=== PATIENT | female | born 1970 | race Caucasian/White ===

== ENCOUNTER 2017-09-30 07:35 | Emergency (ER) | payer OTHER ==
[2017-09-30] MEDS ORDERED: AMOX/K CLAV 875 MG TAB ONE (08:12)
--- NOTE | 2017-09-30 08:12 | ER ---
Nurse's Notes [facility] Name: Geronimo Cassidy Age: 47 yrs Sex: Female : 1970 Arrival Date: 09/30/2017 Time: 07:37 Bed 20 Private MD: None, None Diagnosis: Streptococcal pharyngitis Presentation: 09/30 07:43 Presenting complaint: Patient states: sore throat for 2 days, girlfriend had strep em several weeks ago, reports fever, body aches yesterday. Transition of care: patient was not received from another setting of care. Onset of symptoms was September 28, 2017. Risk Assessment: Do you want to hurt yourself or someone else? Patient reports no desire to harm self or others. Initial Sepsis Screen: Does the patient meet any 2 criteria? No. Patient's initial sepsis screen is negative. Does the patient have a suspected source of infection? No. Patient's initial sepsis screen is negative. Care prior to arrival: None. 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 - Social history:: Smoking status: Patient uses tobacco products, smokes two packs cigarettes per day. Screenin:46 Abuse screen: Denies threats or abuse. Nutritional screening: No deficits noted. em Tuberculosis screening: No symptoms or risk factors identified. Fall Risk None identified. Assessment: 07:47 General: Appears in no apparent distress. uncomfortable, Behavior is calm, cooperative. em Pain: Complains of pain in throat Pain currently is 8 out of 10 on a pain scale. Neuro: Level of Consciousness is awake, alert, obeys commands, Oriented to person, place, time, situation. Cardiovascular: Capillary refill < 3 seconds Patient's skin is warm and dry. Respiratory: Airway is patent Respiratory effort is even, unlabored, Respiratory pattern is regular, symmetrical, Breath sounds are clear bilaterally. GI: Abdomen is flat. : No signs and/or symptoms were reported regarding the genitourinary system. EENT: Throat is clear is pink. Derm: Skin is intact. Musculoskeletal: Range of motion: intact in all extremities. 08:00 Reassessment: Patient appears in no apparent distress at this time. I agree with above iw assessment by Jeff Roberto LVN. Vital Signs: 07:44 BP 143 / 78; Pulse 80; Resp 18; Temp 98.9(O); Pulse Ox 97% on R/A; Weight 70.31 kg; em Height 5 ft. 4 in. (162.56 cm); Pain 8/10; 08:21 BP 130 / 87; Pulse 77; Resp 16; Pulse Ox 99% on R/A; em 07:44 Body Mass Index 26.61 (70.31 kg, 162.56 cm) em ED Course: 07:37 Patient arrived in ED. mr 07:37 None, None is Private Physician. mr 07:37 Sandy Payton FNP-C is [facility]. kb 07:37 Chandler Samuel MD is Attending Physician. kb 07:43 Jeff Roberto LVN is Primary Nurse. em 07:49 Arm band placed on. em 07:49 Patient has correct armband on for positive identification. Bed in low position. Call em light in reach. 07:49 No provider procedures requiring assistance completed. Patient did not have IV access em during this emergency room visit. 07:54 Triage completed. iw Administered Medications: 08:13 Drug: Augmentin 875 mg Route: PO; 08:23 Follow up: Response: No adverse reaction em Outcome: 08:11 Discharge ordered by . kb 08:22 Discharged to home ambulatory. em 08:22 Condition: good 08:22 Discharge instructions given to patient, Instructed on discharge instructions, follow up and referral plans. medication usage, Demonstrated understanding of instructions, follow-up care, medications, Prescriptions given X 1. 08:24 Patient left the ED. em Signatures: Sandy Payton FNP-C FNP-Ckb Hammond, Christina, RN RN Joie Mendes mr Jeff Roberto LVN LVN em Yue Machado RN RN
--- NOTE | 2017-09-30 08:12 | EDPHYS ---
Physician Documentation [facility] Name: Geronimo Cassidy Age: 47 yrs Sex: Female : 1970 Arrival Date: 09/30/2017 Time: 07:37 Bed 20 Private MD: None, None ED Physician Chandler Samuel HPI: 09/30 08:09 This 47 yrs old Female presents to ER via Ambulatory with complaints of Sore kb Throat. 08:09 The patient presents with sore throat. The patient describes throat pain as constant. kb Onset: The symptoms/episode began/occurred 2 day(s) ago. Severity of symptoms: At their worst the symptoms were moderate, in the emergency department the symptoms are unchanged. Modifying factors: The symptoms are alleviated by nothing, the symptoms are aggravated by swallowing, Patient's oral intake status: good Denies contact with similarly ill indivduals. Associated signs and symptoms: Pertinent positives: fever, Sore throat. The patient has not experienced similar symptoms in the past. The patient has not recently seen a physician. Pt states she started having a sore throat 2 days ago, yesterday developed subjective fever and body aches. . 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 - Social history:: Smoking status: Patient uses tobacco products, smokes two packs cigarettes per day. ROS: 08:08 Cardiovascular: Negative for chest pain, palpitations, and edema, Respiratory: Negative kb for shortness of breath, cough, wheezing, and pleuritic chest pain, Abdomen/GI: Negative for abdominal pain, nausea, vomiting, diarrhea, and constipation, MS/Extremity: Negative for injury and deformity, Skin: Negative for injury, rash, and discoloration, Neuro: Negative for headache, weakness, numbness, tingling, and seizure. 08:08 Constitutional: Positive for body aches, fever, malaise, Negative for chills, fatigue, poor PO intake, weight loss. 08:08 ENT: Positive for sore throat. Exam: 08:08 Constitutional: This is a well developed, well nourished patient who is awake, alert, kb and in no acute distress. Head/Face: Normocephalic, atraumatic. Neck: Trachea midline, no thyromegaly or masses palpated, and no cervical lymphadenopathy. Supple, full range of motion without nuchal rigidity, or vertebral point tenderness. No Meningismus. Chest/axilla: Normal chest wall appearance and motion. Nontender with no deformity. No lesions are appreciated. Cardiovascular: Regular rate and rhythm with a normal S1 and S2. No gallops, murmurs, or rubs. Normal PMI, no JVD. No pulse deficits. Respiratory: Lungs have equal breath sounds bilaterally, clear to auscultation and percussion. No rales, rhonchi or wheezes noted. No increased work of breathing, no retractions or nasal flaring. Abdomen/GI: Soft, non-tender, with normal bowel sounds. No distension or tympany. No guarding or rebound. No evidence of tenderness throughout. Back: No spinal tenderness. No costovertebral tenderness. Full range of motion. Skin: Warm, dry with normal turgor. Normal color with no rashes, no lesions, and no evidence of cellulitis. MS/ Extremity: Pulses equal, no cyanosis. Neurovascular intact. Full, normal range of motion. Neuro: Awake and alert, GCS 15, oriented to person, place, time, and situation. Cranial nerves II-XII grossly intact. Motor strength 5/5 in all extremities. Sensory grossly intact. Cerebellar exam normal. Normal gait. 08:08 ENT: Posterior pharynx: Airway: normal, no evidence of obstruction, Tonsils: bilaterally enlarged, with erythema, Uvula: normal, midline, swelling, that is moderate, erythema, that is moderate, exudate, is not appreciated. Vital Signs: 07:44 BP 143 / 78; Pulse 80; Resp 18; Temp 98.9(O); Pulse Ox 97% on R/A; Weight 70.31 kg; em Height 5 ft. 4 in. (162.56 cm); Pain 8/10; 08:21 BP 130 / 87; Pulse 77; Resp 16; Pulse Ox 99% on R/A; em 07:44 Body Mass Index 26.61 (70.31 kg, 162.56 cm) em MDM: 07:43 Patient medically screened. kb 08:08 Data reviewed: vital signs, nurses notes. Data interpreted: Pulse oximetry: on room air kb is 97 %. Interpretation: normal. Counseling: I had a detailed discussion with the patient and/or guardian regarding: the historical points, exam findings, and any diagnostic results supporting the discharge/admit diagnosis, lab results, the need for outpatient follow up, a family practitioner, to return to the emergency department if symptoms worsen or persist or if there are any questions or concerns that arise at home. 09/30 07:43 Order name: Strep kb 09/30 07:43 Order name: Group A Streptococcus Rapid Sc; Complete Time: 08:07 EDMS Administered Medications: 08:13 Drug: Augmentin 875 mg Route: PO; 08:23 Follow up: Response: No adverse reaction em Disposition: 13:41 Co-signature as Attending Physician, Chandler Samuel MD. rn Disposition: 09/30/17 08:11 Discharged to Home. Impression: Streptococcal pharyngitis. - Condition is Stable. - Discharge Instructions: Strep Throat, [id number]. - Prescriptions for Augmentin 875- 125 mg Oral Tablet - take 1 tablet by ORAL route every 12 hours for 7 days; 14 tablet. - Medication Reconciliation Form, Thank You Letter, Antibiotic Education, Prescription Opioid Use, Work release form form. - Follow up: Emergency Department; When: As needed; Reason: Worsening of condition. Follow up: Private Physician; When: 2 - 3 days; Reason: Recheck today's complaints, Continuance of care, Re-evaluation by your physician. Signatures: Dispatcher [employer] Sandy Carrion, MANAGER PULMONARY-C MANAGER PULMONARY-Jenny Davis, RN RN Jeff Roberto, CODING DIRECTOR CODING DIRECTOR Chandler Samuel MD MD patternmaker sample: (The following items were deleted from the chart) 08:24 08:11 09/30/2017 08:11 Discharged to Home. Impression: Streptococcal pharyngitis. em Condition is Stable. Forms are Medication Reconciliation Form, Thank You Letter, Antibiotic Education, Prescription Opioid Use. Follow up: Emergency Department; When: As needed; Reason: Worsening of condition. Follow up: Private Physician; When: 2 - 3 days; Reason: Recheck today's complaints, Continuance of care, Re-evaluation by your physician. kb
== END 2017-09-30 08:24 | disposition home or self-care (01) ==
LOC: ER 07:35
DX: J02.0 Streptococcal pharyngitis (principal); F17.210 Nicotine dependence, cigarettes, uncomplicated
CPT/HCPCS: 87081; 99283

== ENCOUNTER 2019-05-16 13:27 | Emergency (ER) | payer OTHER, SELFPAY ==
--- OUTSIDE RECORDS SUMMARY | 2019-05-16 13:28 | XMS REPORT ---
:1970 [facility] Address [address] [place] [place] [address] Care Team Providers Name Role Phone Unavailable Unavailable Unavailable Problems This patient has no known problems. Allergies, Adverse Reactions, Alerts This patient has no known allergies or adverse reactions. Medications This patient has no known medications.
[2019-05-16] MEDS ORDERED: ONDANSETRON 4 MG/2 ML VIAL ONE (14:23)
[2019-05-16] MEDS ORDERED: NA CHLORIDE 0.9% 1,000 ML ONE (14:23)
[2019-05-16] MEDS ORDERED: DIAZEPAM 5 MG TABLET ONE (14:24)
[2019-05-16 14:37] LABS: Absolute Lymphocytes (CBC) 2.5 K/uL (0.7-4.9); Basophils % 0.7 % (0-1.3); Hematocrit 45.6 % (36.0-45.0); Lymphocytes % 33.5 % (15.3-44.8); MPV 10.5 fL (7.6-11.3); Protime INR 0.97; RBC Red Blood Cell Count 4.94 M/uL (3.86-4.86)
--- NOTE | 2019-05-16 14:52 | RAD REPORT ---
EXAM DESCRIPTION: RAD - Chest Single View - 05/16/2019 2:43 pm CLINICAL HISTORY: Dizziness Chest pain. COMPARISON: CHEST SINGLE VIEW dated 09/01/2008; CHEST PA AND LAT 2 VIEW dated 07/02/2000 FINDINGS: Portable technique limits examination quality. The lungs are grossly clear. The heart is normal in size. No displaced fractures. IMPRESSION: No acute intrathoracic process suspected.
[2019-05-16 14:57] LABS: ALT/SGPT 27 U/L (12-78); AST/SGOT 12 U/L (15-37); Alkaline Phosphatase 117 U/L (45-117); BUN Blood Urea Nitrogen 14 mg/dL (7-18); Bicarbonate 25 mmol/L (21-32); Bilirubin Direct < 0.1 mg/dL (0-0.2); Bilirubin Total 0.3 mg/dL (0.2-1.0); Glucose Level 94 mg/dL (74-106); Magnesium 2.5 mg/dL (1.8-2.4); Potassium 3.9 mmol/L (3.5-5.1); Protein, Total 7.6 g/dL (6.4-8.2); Sodium Level 139 mmol/L (136-145); Troponin (Emerg Dept Use Only) < 0.02 ng/mL (0.0-0.045)
--- NOTE | 2019-05-16 16:02 | RAD REPORT ---
EXAM DESCRIPTION: CT - Head Brain Wo Cont - 05/16/2019 3:51 pm CLINICAL HISTORY: DIZZINESS Headache, drowsiness COMPARISON: HEAD BRAIN W O CONTRAST dated 09/01/2008 TECHNIQUE: All CT scans are performed using dose optimization technique as appropriate and may inclu de automated exposure control or mA/KV adjustment according to patient size. FINDINGS: No intracranial hemorrhage, hydrocephalus or extra-axial fluid collection.No areas of brai n edema or evidence of midline shift. The paranasal sinuses and mastoids are clear. The calvarium is intact. IMPRESSION: No acute intracranial abnormality.
--- NOTE | 2019-05-16 16:11 | ER ---
Nurse's Notes [facility] Name: Geronimo Cassidy Age: 49 yrs Sex: Female : 1970 Arrival Date: 05/16/2019 Time: 13:30 Bed 7 Private MD: Diagnosis: Benign paroxysmal vertigo, right ear;Otitis media, unspecified, right ear Presentation: 05/16 13:55 Presenting complaint: Patient states: R ear started hurting, Friday I started ca1 getting dizzy. Dramamine taken since yesterday but I still feel dizzy and nauseated. I also took one this morning. Transition of care: patient was not received from another setting of care. Onset of symptoms was May 16, 2019. Risk Assessment: Do you want to hurt yourself or someone else? Patient reports no desire to harm self or others. Initial Sepsis Screen: Does the patient meet any 2 criteria? No. Patient's initial sepsis screen is negative. Does the patient have a suspected source of infection? No. Patient's initial sepsis screen is negative. Care prior to arrival: None. 13:55 Method Of Arrival: Ambulatory ca1 13:55 Acuity: MITZY 3 ca1 Triage Assessment: 14:05 General: Appears in no apparent distress. obese, Behavior is calm, cooperative, tw2 appropriate for age. Pain: Complains of pain in right ear and left ear. 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 - Social history:: Smoking status: Patient uses tobacco products, smokes two packs cigarettes per day. - Ebola Screening: : Patient negative for fever greater than or equal to 101.5 degrees Fahrenheit, and additional compatible Ebola Virus Disease symptoms Patient denies exposure to infectious person Patient denies travel to an Ebola-affected area in the 21 days before illness onset No symptoms or risks identified at this time. Screenin:02 Abuse screen: Denies threats or abuse. Nutritional screening: No deficits noted. tw2 Tuberculosis screening: No symptoms or risk factors identified. Fall Risk None identified. Assessment: 14:04 Reassessment: provider at bedside at this time. tw2 14:05 General: Appears in no apparent distress. obese, Behavior is calm, cooperative, tw2 appropriate for age. Pain: Complains of pain in right ear. Neuro: Level of Consciousness is awake, alert, obeys commands, Oriented to person, place, time, situation, Reports dizziness. Cardiovascular: Heart tones S1 S2 Patient's skin is warm and dry. Respiratory: Airway is patent Respiratory effort is even, unlabored, Respiratory pattern is regular, symmetrical, Breath sounds are clear bilaterally. GI: No signs and/or symptoms were reported involving the gastrointestinal system. Abdomen is round non-distended, obese, Bowel sounds present X 4 quads. : No signs and/or symptoms were reported regarding the genitourinary system. EENT: Reports pain in right ear. Derm: Skin is dry, Skin temperature is warm. Musculoskeletal: Range of motion: intact in all extremities. 15:26 Reassessment: Patient appears in no apparent distress at this time. Patient and/or tw2 family updated on plan of care and expected duration. Pain level reassessed. Patient is alert, oriented x 3, equal unlabored respirations, skin warm/dry/pink. 16:40 Reassessment: Patient appears in no apparent distress at this time. Patient and/or tw2 family updated on plan of care and expected duration. Pain level reassessed. Patient is alert, oriented x 3, equal unlabored respirations, skin warm/dry/pink. Patient states feeling better. Patient states symptoms have improved. Vital Signs: 13:59 BP 145 / 88; Pulse 73; Resp 18 S; Temp 98(O); Pulse Ox 95% on R/A; Weight 77.11 kg (R); ca1 Height 5 ft. 4 in. (162.56 cm) (R); Pain 2/10; 15:25 BP 121 / 77; Pulse 81; Resp 17; Pulse Ox 99% on R/A; tw2 16:40 BP 122 / 67; Pulse 69; Resp 17; Pulse Ox 97% on R/A; tw2 13:59 Body Mass Index 29.18 (77.11 kg, 162.56 cm) ca1 ED Course: 13:30 Patient arrived in ED. rg4 13:58 Triage completed. ca1 13:59 Arm band placed on right wrist. ca1 14:01 Kaiden Martinez, CUSTOMER ACQUISITION SPECIALIST is PHCP. pm1 14:01 Stanley Houston MD is Attending Physician. pm1 14:02 Christina Hernandez, SHELDON is Primary Nurse. tw2 14:05 Bed in low position. Call light in reach. Adult w/ patient. Pulse ox on. NIBP on. tw2 14:25 Inserted saline lock: 22 gauge in left antecubital area, using aseptic technique. tw2 ,using aseptic technique. per Kelsey Johansen Blood collected. 14:40 XRAY Chest (1 view) In Process Unspecified. EDMS 15:51 CT completed. Patient tolerated procedure well. Patient moved back from CT. bq 15:53 CT Head Brain wo Cont In Process Unspecified. EDMS 16:41 No provider procedures requiring assistance completed. IV discontinued, intact, tw2 bleeding controlled, No redness/swelling at site. Pressure dressing applied. Administered Medications: 14:25 Drug: Zofran 4 mg Route: IVP; Site: left antecubital; tw2 15:24 Follow up: Response: No adverse reaction; Nausea is decreased tw2 14:25 Drug: NS 0.9% 1000 ml Route: IV; Rate: 1000 ml; Site: left antecubital; tw2 16:00 Follow up: Response: No adverse reaction; IV Status: Completed infusion; IV Intake: tw2 1000ml 14:26 Drug: Valium 5 mg Route: PO; tw2 16:40 Follow up: Response: No adverse reaction; Marked relief of symptoms tw2 16:22 Drug: Rocephin 1 grams Route: IV; Rate: calculated rate; Site: left antecubital; tw2 16:39 Follow up: Response: No adverse reaction; IV Status: Completed infusion tw2 Intake: 16:00 IV: 1000ml; Total: 1000ml. tw2 Outcome: 16:09 Discharge ordered by . pm1 16:41 Discharged to home ambulatory, with significant other. tw2 16:41 Condition: stable 16:41 Discharge instructions given to patient, significant other, Instructed on discharge instructions, follow up and referral plans. no drinking with medication, no driving heavy equipment, medication usage, Demonstrated understanding of instructions, follow-up care, medications, Prescriptions given X 4. 16:42 Patient left the ED. tw2 Signatures: Dispatcher [employer] EDMS Stephani Weaver Patrick, CUSTOMER ACQUISITION SPECIALIST CUSTOMER ACQUISITION SPECIALIST pm1 Christina Hernandez, RN RN tw2 Elva Branch rg4 Doris Bishop, RN RN ca1
--- NOTE | 2019-05-16 16:12 | EDPHYS ---
Physician Documentation [facility] Name: Geronimo Cassidy Age: 49 yrs Sex: Female : 1970 Arrival Date: 05/16/2019 Time: 13:30 Bed 7 Private MD: Stanley Pantoja HPI: 05/16 14:24 This 49 yrs old Female presents to ER via Ambulatory with complaints of pm1 Dizziness. 14:24 The patient presents with sense of spinning, vertigo. Onset: The symptoms/episode pm1 began/occurred 2 day(s) ago. Context: occurred at home, just prior to the episode the patient experienced Right ear pain. Modifying factors: The symptoms are alleviated by Dramamine, holding head still, the symptoms are aggravated by movement of head, changing position. Associated signs and symptoms: Pertinent positives: nausea, vomiting, Pertinent negatives: abdominal pain, chest pain, headache, numbness, shortness of breath, tingling. Patient's baseline: Neuro: alert and fully oriented, Motor: no deficits, Ambulation: walks without assistance, Speech: normal, The patient has a previous history of vertigo, 1 year ago. The patient has experienced a previous episode, approximately 1 years ago. It is unknown whether or not the patient has recently seen a physician. 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 - Social history:: Smoking status: Patient uses tobacco products, smokes two packs cigarettes per day. - Ebola Screening: : Patient negative for fever greater than or equal to 101.5 degrees Fahrenheit, and additional compatible Ebola Virus Disease symptoms Patient denies exposure to infectious person Patient denies travel to an Ebola-affected area in the 21 days before illness onset No symptoms or risks identified at this time. ROS: 14:24 Constitutional: Negative for fever, chills, and weight loss, Eyes: Negative for injury, pm1 pain, redness, and discharge. 14:24 Neck: Negative for injury, pain, and swelling, Cardiovascular: Negative for chest pain, palpitations, and edema, Respiratory: Negative for shortness of breath, cough, wheezing, and pleuritic chest pain. 14:24 Back: Negative for injury and pain, : Negative for injury, bleeding, discharge, and swelling, MS/Extremity: Negative for injury and deformity, Skin: Negative for injury, rash, and discoloration. 14:24 ENT: Positive for ear pain, Negative for drainage from ear(s), sore throat, dental pain, difficulty swallowing, difficulty handling secretions, hoarseness. 14:24 Abdomen/GI: Positive for nausea and vomiting, Negative for abdominal pain, diarrhea, constipation. 14:24 Neuro: Positive for dizziness, Negative for headache, numbness, tingling. Exam: 14:24 Constitutional: This is a well developed, well nourished patient who is awake, alert, pm1 and in no acute distress. Head/Face: Normocephalic, atraumatic. Eyes: Pupils equal round and reactive to light, extra-ocular motions intact. Lids and lashes normal. Conjunctiva and sclera are non-icteric and not injected. Cornea within normal limits. Periorbital areas with no swelling, redness, or edema. 14:24 Neck: Trachea midline, no thyromegaly or masses palpated, and no cervical lymphadenopathy. Supple, full range of motion without nuchal rigidity, or vertebral point tenderness. No Meningismus. Chest/axilla: Normal chest wall appearance and motion. Nontender with no deformity. No lesions are appreciated. Cardiovascular: Regular rate and rhythm with a normal S1 and S2. No gallops, murmurs, or rubs. Normal PMI, no JVD. No pulse deficits. Respiratory: Lungs have equal breath sounds bilaterally, clear to auscultation and percussion. No rales, rhonchi or wheezes noted. No increased work of breathing, no retractions or nasal flaring. 14:24 Back: No spinal tenderness. No costovertebral tenderness. Full range of motion. Skin: Warm, dry with normal turgor. Normal color with no rashes, no lesions, and no evidence of cellulitis. MS/ Extremity: Pulses equal, no cyanosis. Neurovascular intact. Full, normal range of motion. 14:24 ENT: External ear(s): are unremarkable, Ear canal(s): are normal, TM's: bulging, erythema, that is mild, on the right, Nose: is normal, no acute changes, Mouth: is normal, no acute changes. 14:24 Abdomen/GI: Inspection: abdomen appears normal, Bowel sounds: normal, Palpation: abdomen is soft and non-tender, in all quadrants, mass. 14:24 Neuro: Orientation: is normal, Motor: is normal, moves all fours. Vital Signs: 13:59 BP 145 / 88; Pulse 73; Resp 18 S; Temp 98(O); Pulse Ox 95% on R/A; Weight 77.11 kg (R); ca1 Height 5 ft. 4 in. (162.56 cm) (R); Pain 2/10; 15:25 BP 121 / 77; Pulse 81; Resp 17; Pulse Ox 99% on R/A; tw2 16:40 BP 122 / 67; Pulse 69; Resp 17; Pulse Ox 97% on R/A; tw2 13:59 Body Mass Index 29.18 (77.11 kg, 162.56 cm) ca1 MDM: 14:02 Patient medically screened. pm1 16:07 Data reviewed: vital signs. Data interpreted: Pulse oximetry: on room air is 99 %. pm1 Interpretation: normal. Counseling: I had a detailed discussion with the patient and/or guardian regarding: the historical points, exam findings, and any diagnostic results supporting the discharge/admit diagnosis, lab results, radiology results, the need for outpatient follow up, to return to the emergency department if symptoms worsen or persist or if there are any questions or concerns that arise at home. 05/16 14:14 Order name: Basic Metabolic Panel; Complete Time: 15: pm05/16 14:14 Order name: CBC with Diff; Complete Time: 15:01 pm05/16 14:14 Order name: LFT's; Complete Time: 15: pm05/16 14:14 Order name: Magnesium; Complete Time: 15: pm05/16 14:14 Order name: PT-INR; Complete Time: 15: pm05/16 14:14 Order name: Troponin (emerg Dept Use Only); Complete Time: 15: pm05/16 14:14 Order name: XRAY Chest (1 view); Complete Time: 15: pm 05/16 14:14 Order name: CT Head Brain wo Cont; Complete Time: 16:04 pm1 05/16 14:14 Order name: Flu; Complete Time: 15:02 pm05/16 14:14 Order name: Strep; Complete Time: 15:01 pm05/16 14:51 Order name: Throat Culture EDMS 05/16 14:14 Order name: EKG; Complete Time: 14:15 pm1 05/16 14:14 Order name: Cardiac monitoring; Complete Time: 14:32 pm05/16 14:14 Order name: EKG - Nurse/Tech; Complete Time: 14:59 pm05/16 14:14 Order name: IV Saline Lock; Complete Time: 14:32 pm05/16 14:14 Order name: Labs collected and sent; Complete Time: 14:32 pm05/16 14:14 Order name: O2 Per Protocol; Complete Time: 14:32 pm05/16 14:14 Order name: O2 Sat Monitoring; Complete Time: 14:32 pm1 Administered Medications: 14:25 Drug: Zofran 4 mg Route: IVP; Site: left antecubital; tw2 15:24 Follow up: Response: No adverse reaction; Nausea is decreased tw2 14:25 Drug: NS 0.9% 1000 ml Route: IV; Rate: 1000 ml; Site: left antecubital; tw2 16:00 Follow up: Response: No adverse reaction; IV Status: Completed infusion; IV Intake: tw2 1000ml 14:26 Drug: Valium 5 mg Route: PO; tw2 16:40 Follow up: Response: No adverse reaction; Marked relief of symptoms tw2 16:22 Drug: Rocephin 1 grams Route: IV; Rate: calculated rate; Site: left antecubital; tw2 16:39 Follow up: Response: No adverse reaction; IV Status: Completed infusion tw2 Disposition: 05/17 07:32 Co-signature as Attending Physician, Stanley Houston MD I agree with the assessment and ilana plan of care. Disposition: 05/16/19 16:09 Discharged to Home. Impression: Benign paroxysmal vertigo, right ear, Otitis media, unspecified, right ear. - Condition is Stable. - Discharge Instructions: Benign Positional Vertigo, Otitis Media, Adult. - Prescriptions for Zofran 4 mg Oral Tablet - take 1 tablet by ORAL route every 8 hours As needed; 20 tablet. Augmentin 875- 125 mg Oral Tablet - take 1 tablet by ORAL route every 12 hours for 10 days; 20 tablet. Meclizine 25 mg Oral Tablet - take 1 tablet by ORAL route every 8 hours As needed; 30 tablet. Valium 2 mg Oral Tablet - take 1 tablet by ORAL route every 8 hours As needed; 20 tablet. - Medication Reconciliation Form, Thank You Letter, Antibiotic Education, Prescription Opioid Use, Work release form form. - Follow up: Emergency Department; When: As needed; Reason: Worsening of condition. Follow up: Private Physician; When: 2 - 3 days; Reason: Recheck today's complaints, Continuance of care, Re-evaluation by your physician. - Problem is new. - Symptoms have improved. Signatures: Dispatcher [employer] EDStanley Yeager MD MD cha Marinas, Patrick, FINISHING AREA OPERATOR FINISHING AREA OPERATOR pm1 Christina Hernandez RN RN tw2 Doris Bishop RN RN ca1 Corrections: (The following items were deleted from the chart) 05/16 16:42 16:09 05/16/2019 16:09 Discharged to Home. Impression: Benign paroxysmal vertigo, right tw2 ear; Otitis media, unspecified, right ear. Condition is Stable. Forms are Work release form, Medication Reconciliation Form, Thank You Letter, Antibiotic Education, Prescription Opioid Use. Follow up: Emergency Department; When: As needed; Reason: Worsening of condition. Follow up: Private Physician; When: 2 - 3 days; Reason: Recheck today's complaints, Continuance of care, Re-evaluation by your physician. Problem is new. Symptoms have improved. pm1
[2019-05-16] MEDS ORDERED: CEFTRIAXONE/SWI 1gm 1 GM/10 ML SYR ONE (16:17)
[2019-05-16 17:50] VITALS: TEMP 98
[2019-05-16 17:53] VITALS: BP 122/67; O2SAT 97
--- NOTE | 2019-05-17 05:31 | EKG ---
Test Date: 2019-05-16 Test Time: 14:44:48 Personnel Counselor: RAMIRO MEASUREMENT RESULTS: Intervals: Rate: 57 MI: 136 QRSD: 90 QT: 466 QTc: 453 Barton: P: 41 MI: 136 QRS: 77 T: 68 INTERPRETIVE STATEMENTS: Sinus bradycardia Otherwise normal ECG Compared to ECG 09/01/2008 08:14:52 Sinus rhythm no longer present Atrial premature complex(es) no longer present Electronically Signed On 05-17-19 05:30:22 DROP FORGER by Osmar Lopez
== END 2019-05-16 16:42 | disposition home or self-care (01) ==
LOC: ER 13:27
DX: H81.11 Benign paroxysmal vertigo, right ear (principal); H66.91 Otitis media, unspecified, right ear; F17.210 Nicotine dependence, cigarettes, uncomplicated
CPT/HCPCS: 36415; 70450; 71045; 80048; 80076; 83735; 84484; 85025; 85610; 87070; 87081; 87804; 93005; 96361; 96365; 96375; 99284; J0696; J2405; J7030

== ENCOUNTER 2021-09-17 12:07 | Emergency (ER) | payer OTHER, SELFPAY ==
--- OUTSIDE RECORDS SUMMARY | 2021-09-17 12:09 | XMS REPORT | Continuity of Care Document ---
:1970 Author Organization [facility] Address [address] [place] [address] Care Team Providers Name Role Phone David Valle DO Attending Clinician OCTAVIA Attending Clinician Unavailable Ann, Fam Pob I Attending Clinician Unavailable Octavia MEREDITH Attending Clinician PATTIE Attending Clinician Unavailable PEYTON MCCOY Attending Clinician Unavailable PEYTON MCCOY Attending Clinician Unavailable JUNIOR Attending Clinician Unavailable Peyton Mccoy MD Attending Clinician Samuel Hamm Attending Clinician Samuel SYED Attending Clinician Unavailable Payers Payer Name Policy Type Policy Number Effective Date Expiration Date S ource Problems Condition Condition Condition Status Onset Resolution Last Treating Co mments Source Name Details Category Date Date Treatment Clinician Date No known No known Disease NPI:1 83 active active [id number] problems problems Allergies, Adverse Reactions, Alerts Allergy Allergy Status Severity Reaction(s) Onset Inactive Treating Comm ents Source Name Type Date Date Clinician NO KNOWN Drug Active NPI:183 ALLERGIE Class [id number] S Social History Social Habit Start Date Stop Date Quantity Comments Source History of tobacco Cigarette Smoker use Exposure to Yes NPI:[id number] SARS-CoV-2 (event) Cigarettes smoked 2019-07-16 2019-07-16 NPI:[id number] current (pack per 00:00:00 00:00:00 day) - Reported Cigarette 2019-07-16 2019-07-16 pack-years 00:00:00 00:00:00 Tobacco use and 2019-07-16 2019-07-16 Never used NPI:[id number] exposure 00:00:00 00:00:00 Alcohol intake 2019-07-16 2019-07-16 Current drinker NPI:1 [id number] 00:00:00 00:00:00 of alcohol (finding) History [facility] 2018-11-20 2018-11-20 2 NPI:[id number] Alcohol Frequency 00:00:00 00:00:00 History [facility] 2018-11-20 2018-11-20 1 NPI:[id number] Alcohol Std Drinks 00:00:00 00:00:00 History [facility] 2018-11-20 2018-11-20 2 NPI:[id number] Alcohol Binge 00:00:00 00:00:00 Sex [birth year] NPI:[id number] 00:00:00 00:00:00 Smoking Status Start Date Stop Date Source Current every day smoker 2019-07-16 00:00:00 NPI :[id number] Medications Ordered Filled Start Stop Current Ordering Indication Dosage Frequency Signature Comments Components Source Medication Medication Date Date Medication? Clinician (SIG) Name Name meclizine 2020-0 Yes [id number] 25mg Take 1 N PI:183 25 mg 3-23 tablet by [id number] tablet 00:00: mouth 3 00 (three) times daily as needed for Dizziness. meclizine 2020-0 Yes [id number] 25mg Take 1 N PI:183 25 mg 3-23 tablet by [id number] tablet 00:00: mouth 3 00 (three) times daily as needed for Dizziness. meclizine 2020-0 Yes [id number] 25mg Take 1 N PI:183 25 mg 3-23 tablet by [id number] tablet 00:00: mouth 3 00 (three) times daily as needed for Dizziness. meclizine 2020-0 Yes [id number] 25mg Take 1 N PI:183 25 mg 3-23 tablet by [id number] tablet 00:00: mouth 3 00 (three) times daily as needed for Dizziness. meclizine 2020-0 Yes [id number] 25mg Take 1 N PI:183 25 mg 3-18 tablet by [id number] tablet 00:00: mouth 3 00 (three) times daily as needed for Dizziness. meclizine 2019-0 2020- No [id number] 25mg Take 1 NPI:183 25 mg 3-18 03-23 tablet by [id number] tablet 00:00: 00:00 mouth 3 00 :00 (three) times daily as needed for Dizziness. meclizine 2020-0 2020- No [id number] 25mg Take 1 NPI:183 25 mg 3-18 03-23 tablet by [id number] tablet 00:00: 00:00 mouth 3 00 :00 (three) times daily as needed for Dizziness. meclizine 2020-0 2020- No 25mg Take 25 mg N PI:183 25 mg 3-06 03-06 by mouth 3 [id number] tablet 23:19: 00:00 (three) 42 :00 times daily as needed. meclizine 2020-0 2020- No 25mg Take 25 mg N PI:183 25 mg 3-06 03-06 by mouth 3 [id number] tablet 23:19: 00:00 (three) 42 :00 times daily as needed. meclizine 2020-0 Yes [id number] 25mg Take 1 N PI:183 25 mg 3-06 tablet by [id number] tablet 00:00: mouth 3 00 (three) times daily as needed for Dizziness. meclizine 2020-0 Yes [id number] 25mg Take 1 N PI:183 25 mg 3-06 tablet by [id number] tablet 00:00: mouth 3 00 (three) times daily as needed for Dizziness. meclizine 2020-0 2020- No [id number] 25mg Take 1 NPI:183 25 mg 3-06 03-18 tablet by [id number] tablet 00:00: 00:00 mouth 3 00 :00 (three) times daily as needed for Dizziness. Immunizations Ordered Immunization Filled Immunization Date Status Commen Source Name Name Td 2018-11-20 Completed 00:00:00 Tdap 2018-11-20 Completed 00:00:00 Tdap 2018-11-20 Completed 00:00:00 Tdap 2018-11-20 Completed 00:00:00 Tdap 2018-11-20 Completed 00:00:00 TDAP 2018-11-20 Completed 00:00:00 TDAP 2018-11-20 Completed 00:00:00 Vital Signs Vital Name Observation Time Observation Value Comments Source Systolic blood pressure 2019-08-02 19:29:00 118 mm[Hg] Diastolic blood 2019-08-02 19:29:00 71 mm[Hg] NPI:1 [id number] pressure Heart rate 2019-08-02 19:29:00 69 /min NPI:[id number] Body temperature 2019-08-02 19:29:00 36.61 Shanon Respiratory rate 2019-08-02 19:29:00 18 /min Body height 2019-08-02 19:29:00 162.6 cm NPI:[id number] Body weight 2019-08-02 19:29:00 79.153 kg NPI:1831 [id number] BMI 2019-08-02 19:29:00 29.95 kg/m2 NPI:1831 [id number] Systolic blood pressure 2019-07-17 01:53:00 112 mm[Hg] Diastolic blood 2019-07-17 01:53:00 70 mm[Hg] NPI:1 [id number] pressure Heart rate 2019-07-16 22:43:00 68 /min NPI:1831 [id number] Body temperature 2019-07-16 22:43:00 36.89 Shanon Body weight 2019-07-16 22:43:00 80.74 kg NPI:1831 [id number] BMI 2019-07-16 22:43:00 30.55 kg/m2 NPI:1831 [id number] Oxygen saturation in 2019-07-16 22:43:00 98 /min Arterial blood by Pulse oximetry Procedures This patient has no known procedures. Encounters Start End Encounter Admission Attending Care Care Encounter Source Date/Time Date/Time Type Type Clinicians Facility Department ID 2020-07-25 2020-07-25 Patient Leonard [facility] [id number] NPI:183 00:00:00 00:00:00 Outreach [facility] [id number] [facility] [id number] ROSA [id number] 2020-01-25 2020-01-25 Outpatient R [facility] [id number] NPI:183 09:20:00 09:20:00 [id number] 2020-01-25 2020-01-25 Outpatient Amaya COLÓN [facility] [id number] NPI:183 09:20:00 09:20:00 MARIA DEL ROSARIO [id number] 2020-01-25 2020-01-25 Laboratory Lab, Adc Fam Pob I [facility] [id number] NPI:183 07:46:18 08:06:18 Only Maria Del Rosario [facility] [id number] [place] [id number] Professio [phone] [address] 2019-11-24 2019-11-24 Outpatient Amaya BLANKENSHIP [facility] [id number] NPI:183 08:00:00 08:00:00 WALT [id number] 2019-11-08 2019-11-08 Outpatient Amaya NADINEJORGE Rivas [facility] [id number] NPI:183 15:00:00 15:00:00 JORGE MCCOY [id number] 2019-10-13 Outpatient Amaya PACHECO [facility] [id number] NPI:183 13:00:00 13:00:00 BREANA [id number] 2019-10-13 2019-10-13 Outpatient Amaya PACHECO [facility] [id number] NPI:183 13:00:00 13:00:00 BREANA [id number] 2019-08-02 2019-08-02 Office Nadine [facility] [id number] NPI:183 13:30:33 14:29:02 Visit Jorge Whiting [place] [id number] [place] [id number] Professio [phone] nal 092 Building 2019-08-02 2019-08-02 Outpatient Amaya NADINEJORGE Rivas [facility] [id number] NPI:183 13:40:00 13:40:00 JORGE MCCOY [id number] 2019-08-02 Outpatient Amaya NADINEJORGE [facility] [id number] NPI:183 13:40:00 13:40:00 JORGE MCCOY [id number] 2019-07-26 [facility] [id number] NPI:183 00:00:00 00:00:00 [facility] [id number] [place] [id number] Professio [phone] [place] [address] [address] 2019-07-16 2019-07-16 [facility] [id number] NPI:183 16:30:58 17:15:09 Visit [facility] [id number] [place] [id number] Professio [phone] [place] [address] [address] 2019-07-16 2019-07-16 [facility] [id number] NPI:183 16:40:00 16:40:00 ESTHER [id number] 2019-07-16 2019-07-16 [facility] [id number] NPI:183 14:40:00 14:40:00 ESTHER [id number] 2018-11-30 2018-11-30 [facility] [id number] NPI:183 00:00:00 00:00:00 ESTHER [id number] Results This patient has no known results.
[2021-09-17 15:31] LABS: SARS-COV-2 RT PCR NEGATIVE (NEGATIVE)
--- NOTE | 2021-09-17 15:52 | EDPHYS ---
Physician Documentation [facility] Name: Geronimo Cassidy Age: 51 yrs Sex: Female : 1970 Arrival Date: 09/17/2021 Time: 12:08 Bed DIS4 Private MD: ED Physician Stanley Houston HPI: 09/17 13:53 This 51 yrs old Female presents to ER via Ambulatory with complaints of r/o covid. jr8 13:53 Onset: The symptoms/episode began/occurred suddenly. Associated signs and symptoms: jr8 Pertinent positives: diarrhea, nausea, headache. The patient has not experienced similar symptoms in the past. The patient has not recently seen a physician. Patients significant other recently diagnosed with covid. Now having nausea, diarrhea, and headache. Historical: - Allergies: 13:24 No Known Allergies; iw - Home Meds: 13:24 None [Active]; iw - PMHx: 13:24 None; iw ROS: 13:53 Eyes: Negative for injury, pain, redness, and discharge, ENT: Negative for injury, jr8 pain, and discharge, Neck: Negative for injury, pain, and swelling, Cardiovascular: Negative for chest pain, palpitations, and edema, Respiratory: Negative for shortness of breath, cough, wheezing, and pleuritic chest pain, Back: Negative for injury and pain, MS/Extremity: Negative for injury and deformity, Skin: Negative for injury, rash, and discoloration. 13:53 Abdomen/GI: Positive for nausea, diarrhea, Negative for abdominal pain, vomiting. 13:53 Neuro: Positive for headache. Exam: 13:53 Constitutional: This is a well developed, well nourished patient who is awake, alert, jr8 and in no acute distress. ENT: Nares patent. No nasal discharge, no septal abnormalities noted. Tympanic membranes are normal and external auditory canals are clear. Oropharynx with no redness, swelling, or masses, exudates, or evidence of obstruction, uvula midline. Mucous membranes moist. Neck: Trachea midline, no thyromegaly or masses palpated, and no cervical lymphadenopathy. Supple, full range of motion without nuchal rigidity, or vertebral point tenderness. No Meningismus. Cardiovascular: Regular rate and rhythm with a normal S1 and S2. No gallops, murmurs, or rubs. Normal PMI, no JVD. No pulse deficits. Respiratory: Lungs have equal breath sounds bilaterally, clear to auscultation and percussion. No rales, rhonchi or wheezes noted. No increased work of breathing, no retractions or nasal flaring. Abdomen/GI: Soft, non-tender, with normal bowel sounds. No distension or tympany. No guarding or rebound. No evidence of tenderness throughout. Back: No spinal tenderness. No costovertebral tenderness. Full range of motion. Skin: Warm, dry with normal turgor. Normal color with no rashes, no lesions, and no evidence of cellulitis. MS/ Extremity: Pulses equal, no cyanosis. Neurovascular intact. Full, normal range of motion. Neuro: Awake and alert, GCS 15, oriented to person, place, time, and situation. Cranial nerves II-XII grossly intact. Motor strength 5/5 in all extremities. Sensory grossly intact Vital Signs: 13:23 BP 135 / 100; Pulse 91; Resp 18; Temp 98.7; Pulse Ox 98% on R/A; iw MDM: 13:34 Patient medically screened. jr8 15:50 Data reviewed: vital signs, nurses notes, lab test result(s). Data interpreted: Pulse jr8 oximetry: on room air is 98 %. Interpretation: normal. Counseling: I had a detailed discussion with the patient and/or guardian regarding: the historical points, exam findings, and any diagnostic results supporting the discharge/admit diagnosis, lab results, the need for outpatient follow up, a family practitioner, to return to the emergency department if symptoms worsen or persist or if there are any questions or concerns that arise at home. 09/17 13:29 Order name: COVID-19/FLU A+B (Document "Date of Onset" if Symptomatic); Complete Time: jr8 15:53 Administered Medications: No medications were administered Disposition Summary: 09/17/21 15:51 Discharge [facility]dered [facility] Problem: new jr8 Symptoms: have improved jr8 Condition: Stable jr8 Diagnosis - Nausea jr8 - Diarrhea, unspecified jr8 Followup: jr8 - With: Private Physician - When: 2 - 3 days - Reason: Recheck today's complaints, Continuance of care, Re-evaluation by your physician Discharge Instructions: - Discharge Summary Sheet jr8 - Diarrhea, Adult jr8 - Nausea, Adult jr8 - COVID-19 jr8 Forms: - Medication Reconciliation Form jr8 - Thank You Letter jr8 - Antibiotic Education jr8 - Prescription Opioid Use jr8 Prescriptions: - Zofran 4 mg Oral Tablet - take 1 tablet by ORAL route every 12 hours As needed; 20 tablet; Refills: 0, jr8 Product Selection Permitted Signatures: Dispatcher [employer] Yue Whitaker RN RN Burton Zazueta PA PA jr8
--- NOTE | 2021-09-17 15:52 | ER ---
Nurse's Notes [facility] Name: Geronimo Cassidy Age: 51 yrs Sex: Female : 1970 Arrival Date: 09/17/2021 Time: 12:08 Bed DIS4 Private MD: Diagnosis: Nausea;Diarrhea, unspecified Presentation: 09/17 13:23 Chief complaint: Patient states: my gf tested positive for COVID and this morning i iw started having a headache, nausea, diarrhea. Coronavirus screen: Ebola Screen: Patient negative for fever greater than or equal to 101.5 degrees Fahrenheit, and additional compatible Ebola Virus Disease symptoms Patient denies exposure to infectious person. Patient denies travel to an Ebola-affected area in the 21 days before illness onset. Patient positive for the following Ebola Virus Disease associated symptoms:. Initial Sepsis Screen: Does the patient meet any 2 criteria? No. Patient's initial sepsis screen is negative. Does the patient have a suspected source of infection? No. Patient's initial sepsis screen is negative. Risk Assessment: Do you want to hurt yourself or someone else? Patient reports no desire to harm self or others. Onset of symptoms was September 17, 2021. 13:23 Method Of Arrival: Ambulatory iw 13:23 Acuity: MITZY 4 iw Historical: - Allergies: 13:24 No Known Allergies; iw - Home Meds: 13:24 None [Active]; iw - PMHx: 13:24 None; iw Vital Signs: 13:23 BP 135 / 100; Pulse 91; Resp 18; Temp 98.7; Pulse Ox 98% on R/A; iw ED Course: 12:08 Patient arrived in ED. as 13:20 Robbie Gomez PA is PHCP. galo 13:21 Stanley Houston MD is Attending Physician. [facility] 13:24 Triage completed. iw 13:24 Arm band placed on. iw 13:28 PHCP role handed off by Robbie Gomez PA jr8 13:28 Burton Duke PA is PHCP. catalino 15:49 Yue Machado, RN is Primary Nurse. iw Administered Medications: No medications were administered Outcome: 15:51 Discharge ordered by . catalino 16:10 Patient left the ED. [facility] Signatures: Mickail, RobbieYULIYA yan Amelia as Williams, Irene, SHELDON RN iw Burton Duke PA PA jr8 Joie Duenas mh
[2021-09-17 17:35] VITALS: BP 135/100; TEMP 98.7; O2SAT 98
== END 2021-09-17 16:10 | disposition home or self-care (01) ==
LOC: ER 12:07
DX: R11.0 Nausea (principal); R19.7 Diarrhea, unspecified; R51.9 Headache, unspecified; Z20.822 Contact with and (suspected) exposure to COVID-19
CPT/HCPCS: 0240U; 99281

== ENCOUNTER 2021-10-18 09:18 | Emergency (ER) | payer OTHER ==
--- OUTSIDE RECORDS SUMMARY | 2021-10-18 09:21 | XMS REPORT | Continuity of Care Document ---
:1970 Author Organization [facility] t Address [address] [place] [address] Care Team Providers Name Role Phone David Valle DO Attending Clinician OCTAVIA Attending Clinician Unavailable Lab, Fam Pob I Attending Clinician Unavailable Octavia [...] Clinician Date No known No known Disease Unive rs active active ity of problems problems [facility] Allergies, Adverse Reactions, Alerts Allergy Allergy Status Severity Reaction(s) Onset Inactive Treating Comm ents Source Name Type Date Date Clinician NO KNOWN Drug Active Univers ALLERGIE Class ity of S [facility] Social History Social Habit Start Date Stop Date Quantity Comments Source History of tobacco Cigarette Smoker University of use [facility] Exposure to Yes University of SARS-CoV-2 (event) [facility] Cigarettes smoked 2019-07-16 2019-07-16 Univers ity of current (pack per 00:00:00 00:00:00 ) - Reported Branch Cigarette 2019-07-16 2019-07-16 University of pack-years 00:00:00 00:00:00 [facility] Tobacco use and 2019-07-16 2019-07-16 Never used Universit y of exposure 00:00:00 00:00:00 [facility] Alcohol intake 2019-07-16 2019-07-16 Current drinker Unive rsity of 00:00:00 00:00:00 of alcohol [place] [facility] (finding) Branch History [facility] 2018-11-20 2018-11-20 2 University o f Alcohol Frequency 00:00:00 00:00:00 [place] [facility] History [facility] 2018-11-20 2018-11-20 1 University o f Alcohol Std Drinks 00:00:00 00:00:00 [place] [facility] History [facility] 2018-11-20 2018-11-20 2 [place] o f Alcohol Binge 00:00:00 00:00:00 [place] [facility] Sex Assigned At [birth year] Universit y of 00:00:00 00:00:00 [place] [facility] Smoking Status Start Date Stop Date Source Current every day smoker 2019-07-16 00:00:00 Uni versity of [place] [facility] Medications Ordered Filled Start Stop Current Ordering Indication Dosage Frequency Signature Comments Components Source Medication Medication Date Date Medication? Clinician (SIG) Name Name meclizine 2019-0 Yes [id number] 25mg Take 1 U nivers 25 mg 3-23 tablet by ity of tablet 00:00: mouth 3 ([facility]) Medical times Branch daily as needed for Dizziness. meclizine 2020-0 Yes [id number] 25mg Take 1 U nivers 25 mg 3-23 tablet by ity of tablet 00:00: mouth 3 (three) Medical times Branch daily as needed for Dizziness. meclizine 2020-0 Yes [id number] 25mg Take 1 U nivers 25 mg 3-23 tablet by ity of tablet 00:00: mouth 3 [place] (three) Medical times Branch daily as needed for Dizziness. meclizine 2020-0 Yes [id number] 25mg Take 1 U nivers 25 mg 3-23 tablet by ity of tablet 00:00: mouth 3 [place] (three) Medical times Branch daily as needed for Dizziness. meclizine 2019-0 Yes [id number] 25mg Take 1 U nivers 25 mg 3-18 tablet by ity of tablet 00:00: mouth 3 (three) Medical times Branch daily as needed for Dizziness. meclizine 2019-0 2020- No [id number] 25mg Take 1 Univers 25 mg 3-18 03-23 tablet by ity of tablet 00:00: 00:00 mouth 3 [place] 00 :00 (three) Medical times Branch daily as needed for Dizziness. meclizine 2020-0 2020- No [id number] 25mg Take 1 Univers 25 mg 3-18 -23 tablet by ity of tablet 00:00: 00:00 mouth 3 [place] 00 :00 (three) Medical times Branch daily as needed for Dizziness. meclizine 2020-0 2020- No 25mg Take 25 mg U nivers 25 mg 3-06 03-06 by mouth 3 ity of tablet 23:19: 00:00 (three) [place] 42 :00 times Medical daily as Branch needed. meclizine 2020-0 2020- No 25mg Take 25 mg U nivers 25 mg 3-06 03-06 by mouth 3 ity of tablet 23:19: 00:00 (three) [place] 42 :00 times Medical daily as Branch needed. meclizine 2020-0 Yes [id number] 25mg Take 1 U nivers 25 mg 3-06 tablet by ity of tablet 00:00: mouth 3 [place] 00 (three) Medical times Branch daily as needed for Dizziness. meclizine 2020-0 Yes [id number] 25mg Take 1 U nivers 25 mg 3-06 tablet by ity of tablet 00:00: mouth 3 [place] 00 (three) Medical times Branch daily as needed for Dizziness. meclizine 2020-0 2020- No [id number] 25mg Take 1 Univers 25 mg 3-06 -18 tablet by ity of tablet 00:00: 00:00 mouth 3 [place] 00 :00 (three) Medical times Branch daily as needed for Dizziness. Immunizations Ordered Filled Immunization Date Status Comments [facility] e Immunization Name Name [facility] 2018-11-20 Completed University of 00:00: [facility] 2018-11-20 Completed University 00:00: [facility] 2018-11-20 Completed University of 00:00: [facility] Td 2018-11-20 Completed University of 00:00:00 [facility] Td 2018-11-20 Completed University of 00:00:00 [facility] TDAP 2018-11-20 [facility] [place] of 00:00:00 [facility] Vital Signs Vital Name Observation Time Observation Value Comments Source Systolic blood 2019-08-02 19:29:00 118 mm[Hg] Univer sity of pressure [facility] Diastolic blood 2019-08-02 19:29:00 71 mm[Hg] Unive rsity of pressure [facility] Heart rate 2019-08-02 19:29:00 69 /min Universi ty of [facility] Body temperature 2019-08-02 19:29:00 36.61 Shanon Univ ersity of [facility] Respiratory rate 2019-08-02 19:29:00 18 /min Univ ersity of [facility] Body height 2019-08-02 19:29:00 162.6 cm Universi ty of [facility] Body weight 2019-08-02 19:29:00 79.153 kg Universi ty of [facility] BMI 2019-08-02 19:29:00 29.95 kg/m2 Universi ty of [facility] Systolic blood 2019-07-17 01:53:00 112 mm[Hg] Univer sity of pressure [facility] Diastolic blood 2019-07-17 01:53:00 70 mm[Hg] Unive rsity of pressure [facility] Heart rate 2019-07-16 22:43:00 68 /min Universi ty of [facility] Body temperature 2019-07-16 22:43:00 36.89 Shanon Univ ersity of [facility] Body weight 2019-07-16 22:43:00 80.74 kg Universi ty of [facility] BMI 2019-07-16 22:43:00 30.55 kg/m2 Universi ty of [facility] Oxygen saturation in 2019-07-16 22:43:00 98 /min [facility] Arterial blood by [facility] Pulse oximetry Branch Procedures This patient has no known procedures. Encounters Start End Encounter Admission Attending Care Care Encounter Source Date/Time Date/Time Type Type Clinicians Facility Department ID 2020-07-25 2020-07-25 Patient Leonard [facility] [id number] Univers 00:00:00 00:00:00 Outreach Bradly PRIMARY [id number] i ty of [facility] [id number] Aki LEE [phone] Me dical 388 Branch 2020-01-25 2020-01-25 Outpatient R [facility] [id number] Univers 09:20:00 09:20:00 [id number] [facility] 2020-01-25 2020-01-25 Outpatient R OCTAVIA [facility] [id number] Univers 09:20:00 09:20:00 MARIA DEL ROSARIO ity [facility] 2020-01-25 2020-01-25 Laboratory Lab, Adc Fam Pob I [facility] [id number] Univers 07:46:18 08:06:18 Only Maria Del Rosario Dudley [id number] ity [facility] [id number] Loki as Professio [phone] Pa dical nal 044 Branch [address] 2019-11-24 2019-11-24 Outpatient R PATTIE [facility] [id number] Univers 08:00:00 08:00:00 WALT [facility] 2019-11-08 2019-11-08 Outpatient JORGE INGRAM [facility] [id number] Univers 15:00:00 15:00:00 JORGE MCCOY [id number] [facility] 2019-10-13 2019-10-13 Outpatient R JUNIOR [facility] [id number] Univers 13:00:00 13:00:00 BREANA [facility] 2019-10-13 2019-10-13 Outpatient R JUNIOR [facility] [id number] Univers 13:00:00 13:00:00 BREANA [facility] 2019-08-02 2019-08-02 Office [facility] [id number] Univers 13:30:33 14:29:02 Visit Jorge Lei [id number] ity [facility] [id number] [place] [phone] Pa dical nal [id number] Branch [facility] 2019-08-02 2019-08-02 Outpatient JORGE INGRAM [facility] [id number] Univers 13:40:00 13:40:00 [facility] MCCOY [id number] [facility] 2019-08-02 2019-08-02 Outpatient JORGE INGRAM [facility] [id number] Univers 13:40:00 13:40:00 JORGE MCCOY [facility] 2019-07-26 2019-07-26 Refill [facility] [id number] Univers 00:00:00 00:00:00 [facility] [id number] i ty of [place] [id number] Loki as Professio [phone] [address] Office [facility] 2019-07-16 2019-07-16 Office [facility] [id number] Univers 16:30:58 17:15:09 Visit [facility] [id number] i ty of [place] [id number] Loki as Professio [phone] [address] 2019-07-16 2019-07-16 [facility] [id number] Univers 16:40:00 16:40:00 ESTHER [facility] 2019-07-16 2019-07-16 [facility]patient [facility] [id number] Univers 14:40:00 14:40:00 ESTHER [id number] [facility] 2018-11-30 2018-11-30 Outpatient [facility] [id number] Univers 00:00:00 00:00:00 ESTHER [id number] [facility] Results This patient has no known results.
[2021-10-18] MEDS ORDERED: HYDROCODONE/APAP 7.5/325 MG TAB ONE (10:25)
--- NOTE | 2021-10-18 10:34 | RAD REPORT ---
EXAM DESCRIPTION: CT - Stone Protocol - 10/18/2021 10:27 am CLINICAL HISTORY: L groin pain COMPARISON: <Comparisons> TECHNIQUE: Axial 3 mm thick images were obtained without oral or IV contrast. The [id number] span s the entirety of the system including uppermost abdomen and lung bases. All CT scans are performed using dose optimization technique as appropriate and may include automated exposure control or mA/KV adjustment according to patient size. FINDINGS: No hydronephrosis is present and no obstructing ureteral calculi. No suspicious renal mass es. Isodense masses and pyelonephritis are not excluded on a stone protocol CT scan. No significant a drenal finding. No urinary bladder suspicious finding. Uterus and ovaries show no suspicious findings . No retroperitoneal mass lymphadenopathy seen. Imaged portions of the liver, spleen and pancreas show no suspicious findings on non-contrast imaging . No gallbladder or biliary tree abnormality identified. No suspicious bowel findings. No appendicitis findings. Patient has minimal sigmoid diverticulosis. No hernia, mass or bulky lymphadenopathy noted. No free air, free fluid or inflammatory stranding. Minimal SI joint degenerative change seen. No acute or destructive bone process. Aortoiliac atherosclerotic calcifications are present. IMPRESSION: Negative CT stone protocol study for acute or emergent finding. Isodense masses and pyelonephritis are not excluded on stone protocol technique.
[2021-10-18 11:27] LABS: Urine Blood Negative (Negative); Urine Glucose Negative (Negative); Urine Protein Negative (Negative); Urine pH 5.5 (5.0-7.0)
--- NOTE | 2021-10-18 11:31 | ER ---
Nurse's Notes [facility] Name: Geronimo Cassidy Age: 51 yrs Sex: Female : 1970 Arrival Date: 10/18/2021 Time: 09:20 Bed 12 Private MD: Diagnosis: Pain in left leg Presentation: 10/18 09:29 Chief complaint: Patient states: Severe L groin pain for 1 week slowly getting worse. R ll1 sided back pain also. No fever or dysuria. No falls/trauma. Coronavirus screen: Vaccine status: Patient reports receiving the 2nd dose of the covid vaccine. Client denies travel out of the [place] in the last 14 days. At this time, the client does not indicate any symptoms associated with coronavirus-19. Ebola Screen: Patient denies travel to an Ebola-affected area in the 21 days before illness onset. Initial Sepsis Screen: Does the patient meet any 2 criteria? No. Patient's initial sepsis screen is negative. Does the patient have a suspected source of infection? No. Patient's initial sepsis screen is negative. Risk Assessment: Do you want to hurt yourself or someone else? Patient reports no desire to harm self or others. Onset of symptoms was October 11, 2021. 09:29 Method Of Arrival: Ambulatory ll1 09:29 Acuity: MITZY 3 ll1 Triage Assessment: 09:30 General: Appears uncomfortable, Behavior is cooperative, appropriate for age. Pain: ll1 Complains of pain in L groin Quality of pain is described as aching, Aggravated by increased activity. Neuro: No deficits noted. Cardiovascular: No deficits noted. Respiratory: No deficits noted. Musculoskeletal: Circulation, motion, and sensation intact. Capillary refill < 3 seconds, Reports pain in L groin and R side of back. Historical: - Allergies: 09:28 No Known Allergies; ll1 - PMHx: 09:28 None; ll1 - PSHx: 09:28 section; ll1 - Immunization history:: Client reports receiving the 2nd dose of the Covid vaccine. - Social history:: Smoking status: Patient reports the use of cigarette tobacco products, smokes one pack cigarettes per day. Screenin:55 Abuse screen: Denies threats or abuse. Nutritional screening: No deficits noted. ll1 Tuberculosis screening: No symptoms or risk factors identified. Fall Risk Gait- Weak (10 pts.). Total Peace Fall Scale indicates No Risk (0-24 pts). Vital Signs: 09:29 BP 144 / 91; Pulse 81; Resp 18; Temp 98.1; Pulse Ox 97% on R/A; Weight 72.57 kg; Height ll1 5 ft. 4 in. (162.56 cm); Pain 8/10; 09:29 Body Mass Index 27.46 (72.57 kg, 162.56 cm) ll1 ED Course: 09:20 Patient arrived in ED. mr 09:21 Sandy Payton FNP-C is [facility]. kb 09:21 Adolfo Bocanegra MD is Attending Physician. kb 09:30 Triage completed. ll1 09:31 Arm band placed on. ll1 09:52 Patient placed in an exam room, on a stretcher. ll1 09:54 Bryson López, SHELDON is Primary Nurse. ll1 09:56 Patient has correct armband on for positive identification. Bed in low position. Call ll1 light in reach. Side rails up X 1. Cardiac monitoring not applicable on this patient. 10:29 CT Stone Protocol In Process Unspecified. EDMS Administered Medications: 10:34 Drug: [place] (HYDROcodone-acetaminophen) (7.5 mg-325 mg) 1 tabs {Note: rass 0. Family 1 [address] home..} Route: PO; 11:31 Follow up: Response: No adverse reaction; Pain is decreased; RASS: Alert and Calm (0) ll1 Medication: 09:56 VIS not applicable for this client. ll1 Outcome: 11:31 Discharge ordered by . kb 11:36 Patient left the ED. 1 Signatures: Dispatcher [employer] EDMS Sandy Payton FNP-C FNP-Moris Kelley Mendes mr Bryson López, RN RN 1
--- NOTE | 2021-10-18 11:31 | EDPHYS ---
Physician Documentation [facility] Name: Geronimo Cassidy Age: 51 yrs Sex: Female : 1970 Arrival Date: 10/18/2021 Time: 09:20 Bed 12 Private MD: ED Physician Adolfo Bocanegra HPI: 10/18 13:54 This 51 yrs old Female presents to ER via Ambulatory with complaints of Groin Pain, kb Back Pain. 13:54 The patient presents with pain. The complaints affect the left upper thigh. Context: kb The problem was sustained at an unknown site, resulted from an unknown cause, the patient can fully bear weight, the patient is able to ambulate. Onset: The symptoms/episode began/occurred 1 week(s) ago. Modifying factors: The symptoms are alleviated by nothing. the symptoms are aggravated by nothing. Associated signs and symptoms: The patient has no apparent associated signs or symptoms. Treatment prior to arrival includes: no previous treatment. Severity of symptoms: At their worst the symptoms were moderate, in the emergency department the symptoms are unchanged. The patient has not experienced similar symptoms in the past. The patient has not recently seen a physician. Pt reports she has had pain in left groin for a week that is worse today. States she has had this in the past but it normally goes away on it's own. Reports pain is increased with movement. Also reports right back/flank pain . Historical: - Allergies: 09:28 No Known Allergies; ll1 - PMHx: 09:28 None; ll1 - PSHx: 09:28 section; ll1 - Immunization history:: Client reports receiving the 2nd dose of the Covid vaccine. - Social history:: Smoking status: Patient reports the use of cigarette tobacco products, smokes one pack cigarettes per day. ROS: 13:52 Constitutional: Negative for fever, chills, and weight loss. kb 13:52 Back: Positive for flank pain, on the right. 13:52 MS/extremity: Positive for pain, tenderness, of the left upper thigh. 13:52 All other systems are negative. Exam: 13:53 Constitutional: This is a well developed, well nourished patient who is awake, alert, kb and in no acute distress. Head/Face: Normocephalic, atraumatic. ENT: Moist Mucous membranes Respiratory: Respirations even and unlabored. No increased work of breathing. Talking in full sentences Abdomen/GI: Soft, non-tender. No distention Back: No spinal tenderness. No costovertebral tenderness. Full range of motion. Skin: Warm, dry with normal turgor. Normal color. Neuro: Awake and alert, GCS 15, oriented to person, place, time, and situation. Moves all extremities. Normal gait. Psych: Awake, alert, with orientation to person, place and time. Behavior, mood, and affect are within normal limits. 13:53 Musculoskeletal/extremity: Extremities: grossly normal except: noted in the left upper thigh: pain, tenderness, ROM: intact in all extremities, limited active range of motion due to pain, Circulation is intact in all extremities. Sensation intact. Vital Signs: 09:29 BP 144 / 91; Pulse 81; Resp 18; Temp 98.1; Pulse Ox 97% on R/A; Weight 72.57 kg; Height ll1 5 ft. 4 in. (162.56 cm); Pain 8/10; 09:29 Body Mass Index 27.46 (72.57 kg, 162.56 cm) ll1 MDM: 09:58 Patient medically screened. kb 13:51 Data reviewed: vital signs, nurses notes. Data interpreted: Pulse oximetry: on room air kb is 97 %. Interpretation: normal. Counseling: I had a detailed discussion with the patient and/or guardian regarding: the historical points, exam findings, and any diagnostic results supporting the discharge/admit diagnosis, lab results, radiology results, the need for outpatient follow up, a family practitioner, to return to the emergency department if symptoms worsen or persist or if there are any questions or concerns that arise at home. 10/18 11:28 Order name: Urine Dipstick-Ancillary; Complete Time: 11:28 EDMS 10/18 10:13 Order name: CT Stone Protocol; Complete Time: 10:36 ll1 10/18 10:13 Order name: Urine Dipstick-Ancillary (obtain specimen); Complete Time: 10:14 ll1 Administered Medications: 10:34 Drug: [place] (HYDROcodone-acetaminophen) (7.5 mg-325 mg) 1 tabs {Note: rass 0. Family ll1 member driving home..} Route: PO; 11:31 Follow up: Response: No adverse reaction; Pain is decreased; RASS: Alert and Calm (0) ll1 Disposition: 14:39 Attestation: The patient's history, exam findings, diagnostics, and a summary of any [facility] interventions or procedures was reviewed in detail with Sandy GAINES. Disposition Summary: 10/18/21 11:31 Discharge Ordered Location: Home Condition: Stable kb Diagnosis - Pain in left leg kb Followup: kb - With: Emergency Department - When: As needed - Reason: Worsening of condition Followup: kb - With: Private Physician - When: 2 - 3 days - Reason: Recheck today's complaints, Continuance of care, Re-evaluation by your physician Discharge Instructions: - Discharge Summary Sheet kb - Musculoskeletal Pain kb Forms: - Medication Reconciliation Form kb - Thank You Letter kb - Antibiotic Education kb - Prescription Opioid Use kb - Work release form ll1 Prescriptions: - Cyclobenzaprine 10 mg Oral Tablet - take 1 tablet by ORAL route every 8 hours As needed; 21 tablet; Refills: 0, kb Product Selection Permitted - Diclofenac Sodium 75 mg Oral tablet,delayed release (DR/EC) - take 1 tablet by ORAL route 2 times per day As needed; 30 tablet; Refills: 0, kb Product Selection Permitted Signatures: Dispatcher [employer] Sandy Carrion FNP-C FNP-Ckb Lewis, Lynsay RN RN ll1 Adolfo Bocanegra MD MD [id number]
[2021-10-18 11:44] VITALS: BP 144/91; TEMP 98.1; O2SAT 97
== END 2021-10-18 11:36 | disposition home or self-care (01) ==
LOC: ER 09:18
DX: M79.652 Pain in left thigh (principal); F17.210 Nicotine dependence, cigarettes, uncomplicated
CPT/HCPCS: 74176; 76377; 81003; 99283

== ENCOUNTER 2021-11-18 10:52 | Emergency (ER) | payer OTHER ==
[2021-11-18] MEDS ORDERED: ONDANSETRON 4 MG (ODT) TAB ONE (11:58)
[2021-11-18] MEDS ORDERED: ACETAMINOPHEN 325 MG TABLET ONE (11:58)
[2021-11-18 12:08] LABS: Urine Blood Trace-intact (Negative); Urine Glucose Negative (Negative); Urine Protein Negative (Negative); Urine pH 6.5 (5.0-7.0)
--- NOTE | 2021-11-18 12:44 | RAD REPORT ---
EXAM DESCRIPTION: RAD - Chest Single View - 11/18/2021 12:36 pm CLINICAL HISTORY: COUGH Chest pain. COMPARISON: Chest Single View dated 05/16/2019; CHEST SINGLE VIEW dated 09/01/2008; CHEST PA AND LAT 2 VIEW dated 07/02/2000 FINDINGS: Portable technique limits examination quality. The lungs are mildly emphysematous but grossly clear. The heart is normal in size. No displaced fract ures. IMPRESSION: No acute intrathoracic process suspected.
--- NOTE | 2021-11-18 14:18 | EDPHYS ---
Physician Documentation [facility] Name: Geronimo Cassidy Age: 51 yrs Sex: Female : 1970 Arrival Date: 11/18/2021 Time: 10:55 Bed 11 Private MD: ED Physician Chandler Samuel HPI: 11/18 11:50 This 51 yrs old Female presents to ER via Ambulatory with complaints of r/o covid. en 11:50 51-year-old female with history of hypertension, diabetes, COPD not on home O2 presents en to the ED with generalized malaise, body aches, cough, headache for the last 4 days. She reports nausea without vomiting or diarrhea. No dysuria, hematuria. She denies shortness of breath, dyspnea on exertion, wheezing. No known sick contacts. 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 - Social history:: Smoking status: Patient reports the use of cigarette tobacco products, smokes one pack cigarettes per day. ROS: 11:50 Constitutional: Subjective fever, chills, body aches en 11:50 Constitutional: Positive for body aches, chills, fever, malaise. 11:50 ENT: Negative for sore throat. 11:50 Neck: Negative for pain with movement. 11:50 Cardiovascular: Negative for chest pain, orthopnea. 11:50 Respiratory: Positive for cough, Negative for dyspnea on exertion, hemoptysis, orthopnea, pleurisy, shortness of breath, wheezing. 11:50 Abdomen/GI: Positive for nausea, Negative for abdominal pain. 11:50 Back: Positive for Generalized malaise. 11:50 : Negative for urinary symptoms, flank pain. 11:50 All other systems are negative. Exam: 11:50 Constitutional: This is a well developed, well nourished patient who is awake, alert, en and in no acute distress. 11:50 Constitutional: The patient appears in no acute distress, alert, awake. 11:50 Head/face: Exam is negative for acute changes. 11:50 Eyes: Conjunctiva: normal, no exudate, no injection. 11:50 ENT: Mouth: Lips: moist, Oral mucosa: pink and intact, moist, Posterior pharynx: is normal, no erythema, no exudate, Airway: patent. 11:50 Neck: ROM/movement: is normal, is supple. 11:50 Cardiovascular: Rate: tachycardic, Rhythm: regular, Pulses: no pulse deficits are appreciated, Heart sounds: normal, no murmur, no rub, no gallop. 11:50 Respiratory: the patient does not display signs of respiratory distress, Respirations: normal, Breath sounds: are clear throughout, no rales, rhonchi, no stridor, no wheezing. 11:50 Abdomen/GI: Inspection: abdomen appears normal, Bowel sounds: normal, in all quadrants, Palpation: soft, in all quadrants. 11:50 Back: CVA tenderness, is absent. 11:50 Musculoskeletal/extremity: ROM: intact in all extremities, full active range of motion. 11:50 Skin: no rash present. 11:50 Neuro: Orientation: appropriate for stated age, to person, place \\T\\ time. Mentation: appropriate for stated age. 11:50 Psych: Behavior/mood is pleasant, cooperative. Vital Signs: 11:28 BP 130 / 80; Pulse 107; Resp 18; Temp 99.1(TE); Pulse Ox 97% on R/A; tm3 12:25 BP 106 / 67; Pulse 93; Resp 18; Temp 99.1; Pulse Ox 96% on R/A; eh3 13:46 BP 110 / 71; Pulse 100; Resp 20; Pulse Ox 98% on R/A; bh1 MDM: 11:21 Patient medically screened. en 11:50 Differential diagnosis: viral Infection, bacterial infection, URI, bronchitis, en pneumonia UTI, COVID, flu. Data reviewed: vital signs, nurses notes, lab test result(s), radiologic studies. 13:46 ED course: Pt improved. Feels better. Sitting up eating in NAD. Waiting for COVID. Flu, en UA, and CXR negative. 14:15 ED course: COVID+. No need for admission. No respiratory distress. Will d/c home with en return precautions. 11/18 11:22 Order name: COVID-19 SARS RT PCR (Document "Date of Onset" if Symptomatic) en 11/18 11:42 Order name: Influenza Screen (a \\T\\ B); Complete Time: 13:10 en 11/18 11:43 Order name: CXR XRAY; Complete Time: 13:10 en 11/18 12:08 Order name: Urine Dipstick-Ancillary; Complete Time: 12:42 EDMS 11/18 11:54 Order name: Urine Dipstick-Ancillary (obtain specimen); Complete Time: 12:54 en Administered Medications: 11:56 Drug: Ondansetron 4 mg Route: PO; iw 12:55 Follow up: Response: No adverse reaction [facility] 11:56 Not Given (Duplicate Order): Tylenol Suppository 650 mg [place] once iw 11:56 Drug: Tylenol 650 mg Route: PO; iw 12:54 Follow up: Response: No adverse reaction [facility] Disposition: 16:47 Co-signature as Attending Physician, Chandler Samuel MD. rn Disposition Summary: 11/18/21 14:17 Discharge Ordered Location: Home en Problem: new en Symptoms: have improved en Condition: Stable en Diagnosis - COVID en Followup: en - With: Stephen Gamboa MD - When: As needed - Reason: Discharge Instructions: - Discharge Summary Sheet en - COVID-19 en Forms: - Medication Reconciliation Form en - Thank You Letter en - Antibiotic Education en - Prescription Opioid Use en - Work release form [facility] Prescriptions: - Ibuprofen 800 mg Oral Tablet - take 1 tablet by ORAL route every 12 hours As needed take with food; 20 tablet; en Refills: 0, Product Selection Permitted Signatures: Dispatcher [employer] Yue Whitaker RN RN Chandler Samuel MD MD rn Newkirk, Elizabeth, PA PA en Hicks, Barbara, RN RN [facility]
--- NOTE | 2021-11-18 14:18 | ER ---
Nurse's Notes [facility] Name: Geronimo Cassidy Age: 51 yrs Sex: Female : 1970 Arrival Date: 11/18/2021 Time: 10:55 Bed 11 Private MD: Diagnosis: COVID Presentation: 11/18 11:34 Chief complaint: Patient states: fever, nausea, body aches, chills X 3 days. iw 11:36 Coronavirus screen: Client presents with at least one sign or symptom that may indicate iw coronavirus-19. Ebola Screen: Patient negative for fever greater than or equal to 101.5 degrees Fahrenheit, and additional compatible Ebola Virus Disease symptoms Patient denies exposure to infectious person. Patient denies travel to an Ebola-affected area in the 21 days before illness onset. No symptoms or risks identified at this time. Initial Sepsis Screen: Does the patient meet any 2 criteria? No. Patient's initial sepsis screen is negative. Does the patient have a suspected source of infection? No. Patient's initial sepsis screen is negative. Risk Assessment: Do you want to hurt yourself or someone else? Patient reports no desire to harm self or others. Onset of symptoms was November 15, 2021. 11:36 Method Of Arrival: Ambulatory 11:36 Acuity: MITZY 4 iw Triage Assessment: 14:31 General: Appears in no apparent distress. Behavior is calm, cooperative, appropriate [facility] for age. 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 - Social history:: Smoking status: Patient reports the use of cigarette tobacco products, smokes one pack cigarettes per day. Screenin:55 Abuse screen: Denies threats or abuse. Nutritional screening: No deficits noted. [facility] Tuberculosis screening: No symptoms or risk factors identified. Fall Risk None identified. Assessment: 12:55 Pain: Complains of pain in GENERAL. [facility] Vital Signs: 11:28 BP 130 / 80; Pulse 107; Resp 18; Temp 99.1(TE); Pulse Ox 97% on R/A; tm3 12:25 BP 106 / 67; Pulse 93; Resp 18; Temp 99.1; Pulse Ox 96% on R/A; eh3 13:46 BP 110 / 71; Pulse 100; Resp 20; Pulse Ox 98% on R/A; bh1 ED Course: 10:55 Patient arrived in ED. as 11:12 Miryam Viera PA is PHCP. en 11:12 Chandler Samuel MD is Attending Physician. en 11:27 COVID swab sent to lab. tm3 11:31 Yue Machado, RN is Primary Nurse. iw 11:36 Arm band placed on. iw 11:37 Triage completed. iw 11:47 Flu and/or RSV swab sent to lab. tm3 12:07 Urine collected: clean catch specimen, clear. tm3 12:38 CXR XRAY In Process Unspecified. EDMS 12:55 No apparent distress. Resting quietly. Awaiting lab results. bh1 12:55 No provider procedures requiring assistance completed. Patient did not have IV access bh1 during this emergency room visit. 12:55 Patient has correct armband on for positive identification. Pulse ox on. NIBP on. bh1 13:46 No apparent distress. Resting quietly. Awaiting lab results. 1 14:16 Stephen Gamboa MD is Referral Physician. en Administered Medications: 11:56 Drug: Ondansetron 4 mg Route: PO; iw 12:55 Follow up: Response: No adverse reaction 1 11:56 Not Given (Duplicate Order): Tylenol Suppository 650 mg [place] once iw 11:56 Drug: Tylenol 650 mg Route: PO; iw 12:54 Follow up: Response: No adverse reaction [facility] Medication: 12:55 VIS not applicable for this client. [facility] Outcome: 14:17 Discharge ordered by . en 14:31 Discharged to home ambulatory. bh1 14:31 Condition: good 14:31 Discharge instructions given to patient, Instructed on discharge instructions, follow up and referral plans. the need for admit, medication usage. 14:32 Patient left the ED. 1 Signatures: Dispatcher [employer] EDMS Chito Mena tm3 Tri Duenas as Yue Machado, RN RN iw Zoë Chicas 3 Miryam Viera PA PA en Margaret Schmitz RN RN 1
[2021-11-18 14:44] VITALS: TEMP 99.1
[2021-11-18 15:00] VITALS: BP 110/71; O2SAT 98
== END 2021-11-18 14:32 | disposition home or self-care (01) ==
LOC: ER 10:52
DX: U07.1 COVID-19 (principal); F17.210 Nicotine dependence, cigarettes, uncomplicated
CPT/HCPCS: 81003; 87804 ×2; 71045; U0003; Q0162; 99284